=== PATIENT | female | born 1995 | race Caucasian/White ===

== ENCOUNTER 2016-07-23 20:25 | Emergency (ER) | payer BC ==
[~2016-07-23] VITALS: Ht 172.7 cm; Wt 61.0 kg
[2016-07-23 20:27] VITALS: BP 129/86; PULSE 77; RESP 16; TEMP 97.5; O2SAT 100
[2016-07-23] MEDS ORDERED: LEVO.075 PO (21:15)
[2016-07-23] MEDS ORDERED: ZOFR4TAB PO (21:37)
--- NOTE | 2016-07-23 21:42 | PD ---
HPI Chief Complaint: Head Injury Time Seen by Provider: 21:38 Travel History International Travel<30 days: No Contact w/Intl Traveler<30days: No Traveled to known affect area: No History of Present Illness HPI 21-year-old white female presents to emergency department for evaluation of a head injury. She states that she was playing intramural volleyball at [facility] this evening sometime around 6 PM. She states that a ball was spiked into her head. The patient denies loss of consciousness but was dazed for a minute. She states that she had a take herself out of the game for one play. She went back in and finish the game. She states that she does feel nauseous. She does have a headache. She denies any numbness, tingling or weakness. No visual changes. There was no pre-concussive testing. She states that she has had a sinus infection which she was treated for at the clinic earlier today. She was given a prescription for amoxicillin but she has not filled it yet. [facility] Past Medical History Narrative Medical Migraine headaches Diminished Hearing: Yes Medical other: Yes (chronic migraines) Thyroid Disease: Yes Tetanus Vaccination: < 5 Years ?: Not LMP: 07/08/16 Past Surgical History Surgical History: No Previous Surgery Social History Alcohol Use: No Tobacco Use: No Allergies-Medications (Allergen,Severity, Reaction): Coded Allergies: No Known Allergies (Unverified , 07/23/16) Reported Meds & Prescriptions Reported Meds & Active Scripts Active Zofran (Ondansetron HCl) 4 Mg Tab 4 Mg PO Q6HR PRN Reported Synthroid (Levothyroxine Sodium) 75 Mcg Tab 75 Mcg PO DAILY Review of Systems Except as stated in HPI: all other systems reviewed are Neg Physical Exam Narrative GENERAL: Well-developed, well-nourished in no apparent distress. Nontoxic appearing. HEAD: Normocephalic, atraumatic. EYES: Pupils equal round and reactive. Extraocular motions intact. No scleral icterus. No injection or drainage. ENT: Nose without pain to percussion. She has some old dried blood in the right near. No septal hematoma. No blood in the left near. No dental injury. No malocclusion.. Throat without erythema, tonsillar hypertrophy or exudate. Uvula midline. Airway patent. NECK: Trachea midline. Supple, nontender, moves head freely. No central bony tenderness or spasm. CARDIOVASCULAR: Regular rate and rhythm without murmurs, gallops, or rubs. RESPIRATORY: Clear to auscultation. Breath sounds equal bilaterally. No wheezes , rales, or rhonchi. GASTROINTESTINAL: Abdomen soft, non-tender, nondistended. No hepato-splenomegaly , or palpable masses. No guarding. EXTREMITIES: No clubbing, cyanosis, or edema. No joint tenderness. BACK: Nontender without deformity. No flank tenderness. NEUROLOGICAL: Awake, alert and oriented x 3 .Cranial nerves grossly intact. Motor and sensory grossly within normal limits. Normal speech. Normal gait. Normal finger to nose. Negative station and Romberg. Data Data Last Documented VS Vital Signs Date Time Temp Pulse Resp B/P Pulse Ox O2 Delivery O2 Flow Rate FiO2 07/23/16 20:27 97.5 77 16 129/86 100 Room Air Orders Acetaminophen (Tylenol) (07/23/16 21:45) Ondansetron Odt (Zofran Odt) (07/23/16 21:45) MDM Medical Decision Making Medical Screen Exam Complete: Yes Emergency Medical Condition: Yes Medical Record Reviewed: Yes Differential Diagnosis Differential diagnoses: Head injury, concussion, contusion Narrative Course Patient is given Zofran 4 mg by mouth for nausea and 650 of Tylenol by mouth for headache. Her exam is not revealing. Her history is not concerning for any significant intracranial injury. I do not believe that Scanning is indicated at this time. She will follow-up with the clinic at school in the next 48 hours. This is a concussion Diagnosis Primary Impression: Concussion Qualified Code: S06.0X0A - Concussion, without loss of consciousness, initial encounter Patient Instructions: General Instructions Departure Forms: School Release, Please excuse from school until (free text option): No physical activities for 2 weeks. Tests/Procedures Additional Instructions: Rest. Head precautions. Tylenol for pain. Some Zofran for nausea. Ice packs. Avoid alcohol. Avoid all sedating or intoxicating substances. Recheck with your physician at the clinic within 1-2 days. Return to the ER for any problems. Med/Other Pt SpecificInfo: Prescription(s) given Scripts Ondansetron (Zofran)4 Mg Tab4 Mg PO Q6HR PRN (NAUSEA OR VOMITING) #6 TAB Prov:Sanchez,Michaelle L DO 07/23/16 Disposition: 01 DISCHARGE HOME Condition: Stable Ernesto Calle Jul 23, 2016 21:42
[2016-07-23] MEDS ORDERED: ONDANSETRON ODT 4 MG TAB PO ONE (21:45)
[2016-07-23] MEDS ORDERED: ACETAMINOPHEN 325 MG TAB PO ONE (21:45)
== END 2016-07-23 22:22 | disposition home or self-care (01) ==
LOC: NEPB 20:25
DX: S06.0X0A Concussion without loss of consciousness, initial encounter (principal); W21.06XA Struck by volleyball, initial encounter; Y93.68 Activity, volleyball (beach) (court); Y92.214 College as the place of occurrence of the external cause
CPT/HCPCS: 99283